=== PATIENT | male | born 1965 | race Caucasian/White ===

== ENCOUNTER 2017-02-10 20:06 | Emergency (ER) | payer MEDICARE ==
[2017-02-10 21:17] LABS: BASO % 0.4 % (0.2-1.2); EOS % 0.7 % (0.8-7.0); GRAN # 0.4 10_X3_uL (1.8-5.4); GRAN % 12.8 % (34.0-67.9); HEMATOCRIT 41.3 % (40-51); HEMOGLOBIN 14.8 g/dL (13.7-17.5); LYMPH # 1.9 10_X3_uL (1.3-3.6); LYMPH % 70.3 % (21.8-53.1); MEAN CORPUSCULAR HEMOGLOBIN 32.7 pg (27.0-33.0); MEAN CORPUSCULAR HGB CONC 35.8 g/dL (32.0-36.0); MEAN CORPUSCULAR VOLUME 91.2 fL (79-92); MEAN PLATELET VOLUME 10.8 fl (7.5-11.5); MONO # 0.4 10_X3_uL (0.3-0.8); MONO % 15.8 % (5.3-12.2); PLATELET COUNT 98 x10_3/uL (163-337); RED BLOOD COUNT 4.53 x10_6/uL (4.6-6.1); RED CELL DISTRIBUTION WIDTH 12.7 % (11.6-14.4)
[2017-02-10 21:28] LABS: WHITE BLOOD COUNT 2.7 x10_3/uL (4.2-9.1)
== END 2017-02-10 21:40 | disposition home or self-care (01) ==
LOC: ER 20:06
PROVIDERS: General Practice
DX: K92.1 Melena (principal); K64.4 Residual hemorrhoidal skin tags; D69.6 Thrombocytopenia, unspecified; Z79.899 Other long term (current) drug therapy
CPT/HCPCS: 36415; 85025; 99283; G0328-QW